=== PATIENT | male | born 1955 | race African-American/Black ===

== ENCOUNTER 2017-02-21 10:49 | Emergency (ER) | payer OTHER ==
[~2017-02-21] VITALS: Ht 190.5 cm; Wt 90.3 kg
[2017-02-21 10:49] VITALS: BP 121/83
== END 2017-02-21 11:27 | disposition home or self-care (01) ==
LOC: ER 10:52
DX: S70.12XA Contusion of left thigh, initial encounter (principal); W19.XXXA Unspecified fall, initial encounter; Y93.89 Activity, other specified; Y92.89 Other specified places as the place of occurrence of the external cause; Y99.8 Other external cause status
CPT/HCPCS: 99282; A4606; Z7610

== ENCOUNTER 2018-04-26 11:45 | Emergency (ER) | payer OTHER ==
[~2018-04-26] VITALS: Ht 190.5 cm; Wt 93.9 kg
[2018-04-26 11:52] VITALS: BP 166/72
[2018-04-26] MEDS ORDERED: TDAP [DIPH/PERTUSSIS/TET] 0.5 ML VIAL IM ONE ×2 (12:00→12:10)
== END 2018-04-26 12:57 | disposition home or self-care (01) ==
LOC: ER 11:46
DX: S61.032A Puncture wound without foreign body of left thumb without damage to nail, initial encounter (principal); Z98.890 Other specified postprocedural states; W20.8XXA Other cause of strike by thrown, projected or falling object, initial encounter; Y93.89 Activity, other specified; Y99.0 Civilian activity done for income or pay; Y92.59 Other trade areas as the place of occurrence of the external cause
CPT/HCPCS: 73140; 90471; 90715; 99284; A4606; A6402; Z7610